=== PATIENT | female | born 2000 | race Two or more races ===

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

== ENCOUNTER 2021-01-15 22:32 | Emergency (ER) | payer MEDICAID ==
[~2021-01-15] VITALS: Ht 162.6 cm; Wt 72.6 kg
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
--- NOTE | 2021-01-16 00:23 | NUR ---
DR CAZARES AT BED SIDE
--- NOTE | 2021-01-16 01:00 | NUR ---
urine collected and sent to lab
--- NOTE | 2021-01-16 01:53 | NUR ---
MEDICALLY STABLE FOR D/C PER MD, Patient discharged to home in stable condition. Written and verbal after care instructions given. Patient verbalizes understanding of instruction.
[2021-01-16 01:54] VITALS: BP 119/79
== END 2021-01-16 01:54 | disposition home or self-care (01) ==
LOC: ER 22:36
DX: S16.1XXA Strain of muscle, fascia and tendon at neck level, initial encounter (principal); S09.8XXA Other specified injuries of head, initial encounter; R42 Dizziness and giddiness; F10.10 Alcohol abuse, uncomplicated; Y90.9 Presence of alcohol in blood, level not specified; Y08.89XA Assault by other specified means, initial encounter; Y93.89 Activity, other specified; Y92.89 Other specified places as the place of occurrence of the external cause; Y99.8 Other external cause status
CPT/HCPCS: 70450-TC; 72125-TC; 84703-TC